=== PATIENT | male | born 1965 | race Caucasian/White ===

== ENCOUNTER 2019-02-02 21:49 | Inpatient (IN) | payer OTHER ==
[~2019-02-02] VITALS: Ht 170.2 cm; Wt 109.1 kg
--- NOTE | ~2019-02-02 | HEMODYNAMI ---
PATIENT:ROM MARY MEDICAL RECORD: [id number] : 69 [id number] ADMISSION DATE: 02/02/19 Generatedon:02/02/201923:18 Patient name: ROM MARY Patient #: [id number] : 1965 Date of study: 02/02/2019 Page: Of Hemodynamic Procedure Report Patient Data Patient Demographics Procedure consent was obtained First Name: ROM Gender: Male Last Name: USMAN : 1965 Patient #: [id number] Age: 53 year(s) Race: Unknown SSN: [id number] Additional ID: [id number] Contact details [address]: [address] [place] [address] State: [place] City: [place] Zip code: [address] Admission Admission Data Admission Date: 02/02/2019 Admission Time: 21:49 Procedure Procedure Types Cath Procedure Diagnostic Procedure LHC LHC w/Coronaries Sedation Charges Moderate Sedation up to 15 minutes PCI Procedure AMI/SVG/CHEMIST STEROIDS PTCA or Stent AMI-BMS/MARIELLE Initial Procedure Description Procedure Date Procedure Date: 02/02/2019 Procedure Start Time: 22:55 Procedure End Time: 23:15 Procedure Staff Name Function Vidal Ramsey MD Performing Physician Zak Becker RT Monitor Mega Schultz RN Nurse Mary Russo RT Scrub Procedure Data Cath Procedure Fluoroscopy Diagnostic fluoroscopy Total fluoroscopy Time: 4.4 time: 4.4 min min Diagnostic fluoroscopy Total fluoroscopy dose: 681 dose: 681 mGy mGy Contrast Material Contrast Material Type Amount (ml) Isovue 300 104 Entry Location Entry Primary Successful Side Size Upsize Upsize Entry Closure Succes sful Closure Location (Fr) 1 (Fr) 2 (Fr) Remarks Device Remarks Femoral Right 6 Fr Exoseal artery Short Estimated blood loss: 10 ml Diagnostic catheters Device Type Used For End Catheter Placement MULTIPACK Pigtail 5 Fr Procedure catheter MULTIPACK JL 4.0 5Fr Procedure catheter MULTIPACK 3DRC 5Fr Procedure catheter Procedure Complications No complications Procedure Medications Medication Administration Route Dosage 0.9% NaCl I.V. 100 ml/hr Oxygen NC 2 l/min Heparin Flush Bag added to field 2 bags (1000units/500ml NS) Lidocaine 2% added to field 20 Versed I.V. 2 mg Fentanyl I.V. 100 mcg Versed I.V. 2 mg Fentanyl I.V. 100 mcg Heparin Bolus I.V. 3000 units Integrilin (Bolus I.V. 10.2 ml 2mg/ml) Integrilin (Bolus wasted 9.8 ml 2mg/ml) Hemodynamics Rest Heart Rate: 79 (bpm) Pressure Samples Time Site Value (mmHg) Purpose Heart Use Rate(bpm) 23:03 AO 121/80(98) Snapshot 75 Snapshots Pre Cath Intra NCS Post Cath Vital Signs Time Heart Resp SPO2 etCO2 NIBP (mmHg) Rhythm Pain Sedation Rate (ipm) (%) (mmHg) Status Level (bpm) 22:49:13 77 18 97 0 145/95(122) NSR 0 (11) 10(A) , No pain 22:53:31 77 11 95 0 142/90(120) NSR 0 (11) 10(A) , No pain 22:57:47 81 19 95 0 134/91(116) NSR 0 (11) 10(A) , No pain 23:02:05 74 12 92 0 124/79(102) NSR 0 (11) 10(A) , No pain 23:06:21 78 19 94 0 126/79(98) NSR 0 (11) 10(A) , No pain 23:10:33 80 9 97 0 137/89(117) NSR 0 (11) 10(A) , No pain 23:14:49 82 17 97 0 146/95(120) NSR 0 (11) 10(A) , No pain Medications Time Medication Route Dose Verified Delivered Reason Notes Effectiveness by by 22:50:15 0.9% NaCl I.V. 100 Mega Mega Per physician ml/hr Antoine Schultz RN RN 22:50:26 Oxygen NC 2 Mega Mega for low 02 sats l/min Antoine Schulzt RN RN 22:50:36 Heparin Flush added 2 Mega Mega used for Bag to bags Antoine Schultz procedure (1000units/500ml [facility] RN RN NS) 22:50:47 Lidocaine 2% added 20ml Mega Mega for local to vial Antoine Schultz anesthetic field RN RN 22:53:52 Versed I.V. 2 mg Mega Mega for sedation Antoine Schultz RN RN 22:54:02 Fentanyl I.V. 100 Mega Mega for sedation mcg Antoine Schultz RN RN 22:55:48 Versed I.V. 2 mg Mega Mega for sedation Antoine Schultz RN RN 22:57:51 Fentanyl I.V. 100 Mega Mega for sedation mcg Antoine Schultz RN RN 23:00:19 Heparin Bolus I.V. 3,000 Mega Mega for units Antoine Schultz anticoagulation RN RN 23:00:39 Integrilin I.V. 10.2 Mega Mega for (Bolus 2mg/ml) ml Antoine Schultz antiplatelet RN RN therapy 23:02:51 Integrilin wasted 9.8 Mega Mega to sharp's (Bolus 2mg/ml) ml Antoine Schultz RN molder Log Time Note 22:29:42 Mega Schultz RN sent for patient. Start room use. 22:36:59 Informed consent obtained and on chart 22:39:38 Procedure Status Emergent Heart Cath (AMI). 22:39:44 Time tracking: Call back (After hours or weekends) 22:39:48 Plan of Care:Hemodynamics will remain stable., Cardiac rhythm will remain stable., Comfort level will be maintained., Respiratory function will remain adequate., Patient/ family verbilizes understanding of procedure., Procedure tolerated without complication., Recovers from procedure without complications.. 22:40:08 Patient arrives emergently. 22:40:12 Patient received from ED to CCL 1 Alert and oriented. Tansferred to table in Supine position. 22:40:14 Warm blankets applied, and mima hugger turned on for patient comfort. 22:40:16 Correct patient and procedure confirmed by team. 22:40:16 ECG and BP/O2 sat monitors applied to patient. 22:48:06 Vital chart was started 22:48:07 Baseline sample Acquired. 22:48:42 Rhythm: sinus rhythm , w/ ST elevation 22:48:44 Full Disclosure recording started 22:48:47 H&P Date Dictated: 02/02/2019 Emergent; H&P N/A. 22:48:57 ACC Patient presents with STEMI CCS Anginal Class 4--Inability to carry out any physical activity w/o angina. Angina may occur at rest. 22:49:03 ACCPatient has been prescribed/administered the following anti-anginal medication within the last 2 weeks: ARB 22:49:05 Pre-procedure instructions explained to patient. 22:49:06 Pre-op teaching completed and patient verbalized understanding. 22:49:07 Family in waiting room. 22:49:09 Patient NPO since Midnight. 22:49:11 Is the patient allergic to Iodine/contrast media? No. 22:49:12 Is patient on blood thinner?No 22:49:16 ACC The patient was administered the following blood thiners within the last 24 hours: None 22:49:17 Patient diabetic? Yes. 22:49:18 If diabetic: On Metformin? Yes 22:49:23 If on Metformin: Last Dose? 02/02/2019 22:49:26 Previous problem with sedation/anesthesia? No ? 22:49:28 Snore? Yes 22:49:29 Sleep apnea? Yes 22:49:31 Deviated septum? No 22:49:32 Opens mouth fully? Yes 22:49:33 Sticks out tongue? Yes 22:49:35 Airway obstruction? No ? 22:49:36 Dentures? No ? 22:50:15 0.9% NaCl 100 ml/hr I.V. was administered by Mega Schultz RN; Per physician; 22:50:26 Oxygen 2 l/min NC was administered by Mega Schultz RN; for low 02 sats; 22:50:36 Heparin Flush Bag (1000units/500ml NS) 2 bags added to field was administered by Mega Schultz RN; used for procedure; 22:50:47 Lidocaine 2% 20ml vial added to field was administered by Mega Shcultz RN; for local anesthetic; 22:51:20 Pre procedure: right dorsailis pedis pulse 1+ Palpable, but thready & weak; easily obliterated 22:51:26 Patient pain scale 0/10 ?. 22:51:33 IV patent on arrival in left forearm with 0.9% NaCl at [facility]. 22:51:34 Lab results pending. 22:51:38 Right groin area was prepped with chlora-prep and draped in sterile fashion 22:51:46 Alarms reviewed by R. N. 22:51:46 Sharps counted by scrub and verified by R.N. 22:53:10 --------ALL STOP TIME OUT------ 22:53:11 Final Timeout: patient, procedure, and site verified with staff and physician. All members of the team are in agreement. 22:53:14 Right groin site verified by team. 22:53:18 Fire Safety Assessment: A--An alcohol-based skin anteseptic being used preoperatively., C--Open oxygen or nitrous oxide is being used., D--An ESU, laser, or fiber-optic light is being used. 22:53:22 Physical assessment completed. ASA score P 3 - A patient with severe systemic disease as per Vidal Ramsey MD. 22:53:25 Sedation plan: IV Moderate Sedation Medication:Versed, Fentanyl 22:53:52 Versed 2 mg I.V. was administered by Mega Schultz RN; for sedation; 22:54:02 Fentanyl 100 mcg I.V. was administered by Mega Schultz RN; for sedation; 22:54:50 Use device set Femoral Dx 22:54:53 Use device set TAUTH PCI 22:54:55 Tegaderm 4 x 4 (1626W) opened to sterile field. 22:54:56 ACIST Manifold (68469) opened to sterile field. 22:54:57 ACIST Hand Control (09197) opened to sterile field. 22:54:58 ACIST Syringe (96891) opened to sterile field. 22:54:59 Bag Decanter (2001S) opened to sterile field. 22:54:59 Medline Cath Pack ([id number]) opened to sterile field. 22:55:01 DIAGNOSTIC Multipack 5Fr catheter set (VA8161) opened to sterile field. 22:55:05 EMERALD Guide Wire (522-006) opened to sterile field. 22:55:05 INFLATOR Merit BasixCompak (BB3396) opened to sterile field. 22:55:07 CHOICE PT Extra Support 182cm wire ([id number]) opened to sterile field. 22:55:11 SHEATH 6FR [place] (CCO923) opened to sterile field. 22:55:16 Procedure started. 22:55:20 Local anesthetic to right femoral artery with Lidocaine 2% by Vidal Ramsey MD.INITIAL ACCESS ONLY 22:55:48 Versed 2 mg I.V. was administered by Mega Schultz RN; for sedation; 22:55:54 A 6 Fr Short sheath was inserted into the Right Femoral artery 22:56:04 Zero performed for pressure channel P1 22:56:19 A MULTIPACK Pigtail 5 Fr catheter was advanced over the wire and used for Procedure. 22:57:06 LV angiography performed. 22:57:08 LV gram done using TAMAYO 22:57:13 EF : 65 % 22:57:16 Injector settings: Ml/sec: 10, Volume: 20, 22:57:18 Catheter removed. 22:57:27 A MULTIPACK JL 4.0 5Fr catheter was advanced over the wire and used for Procedure. 22:57:51 Fentanyl 100 mcg I.V. was administered by Mega Schultz RN; for sedation; 22:57:57 LCA angiography performed. 22:58:16 Catheter removed. 22:58:22 A MULTIPACK 3DRC 5Fr catheter was advanced over the wire and used for Procedure. 22:59:13 RCA angiography performed. 22:59:29 Catheter removed. 22:59:35 GUIDE 6FR XBLAD 4.0 catheter ([id number]) opened to sterile field. 23:00:19 Heparin Bolus 3,000 units I.V. was administered by Mega Schultz RN; for anticoagulation; 23:00:39 Integrilin (Bolus 2mg/ml) 10.2 ml I.V. was administered by Mega Schultz RN; for antiplatelet therapy; 23:00:55 6 Fr XBLAD 4 guide catheter was inserted over the wire 23:01:06 Pre PCI Site: [place] mLAD has 99% stenosis. 23:01:10 CPTXS wire advanced. 23:01:14 ACC Pre-intervention PRINCESS Flow is 3. 23:02:39 Wire advanced across lesion. 23:02:51 Integrilin (Bolus 2mg/ml) 9.8 ml wasted was administered by Mega Schultz RN; to sharp's; 23:04:22 Inflate balloon Inflation number: 1 A EUPHORA 3.0 x 15 Balloon ([id number]) was prepped and advanced across the Mid LAD 99, then inflated to 11 BETITO for 0:10 (min:sec) . 23:05:17 Balloon removed over the wire. 23:06:33 Place stent Inflation Number: 2 A COBRA RX 3.5 X 15 Stent was prepped and advanced across the Mid LAD 99. The stent was deployed at 17 BETITO for 0:10 (min:sec) 0. 23:07:03 Stent catheter was removed intact over wire. 23:07:04 Wire removed. 23:07:05 Guide catheter removed. 23:07:07 ACC Post-intervention PRINCESS Flow is 3. 23:07:18 Post PCI Site: [place] mLAD has 0% stenosis. 23:07:44 EXOSEAL 6Fr (EX600) opened to sterile field. 23:07:55 Sheath removed intact; hemostasis achieved with Exoseal to the Right Femoral artery. 23:07:58 Procedure ended.(Physican Out) 23:11:48 Fluoroscopy time 04.40 minutes. 23:11:53 Fluoroscopy dose: 681 mGy 23:11:53 Flurop Dose total: 681 23:11:58 Dose Area Product 05681 mGy/cm. 23:12:03 Contrast amount:Isovue 300 104ml. 23:12:06 Maximum allowable dose exceeded? No. 23:12:06 Sharps counted by scrub and verified by R.N. 23:12:09 Insertion/operative site no bleeding no hematoma. 23:12:11 Post-op/insertion site Right Femoral artery dressed using a 4 x 4 and Tegaderm. 23:12:13 Post Procedure Pulses reassessed and unchanged 23:12:16 Post-procedure physical assessment completed. ASA score P 2 - A patient with mild systemic disease as per Vidal Ramsey MD. 23:12:19 Post procedure rhythm: sinus rhythm 23:12:24 Estimated blood loss: 10 ml 23:12:25 Post procedure instruction explained to patient.Patient verbalizes understanding. 23:12:26 Patient needs reinforcement of post procedure teaching. 23:14:38 Procedure type changed to Cath procedure, Diagnostic procedure, LHC, LHC w/Coronaries, Sedation Charges, Moderate Sedation up to 15 minutes, PCI procedure, AMI/SVG/CHEMIST STEROIDS PTCA or Stent, AMI-BMS/MARIELLE Initial 23:14:40 Procedure and supply charges have been captured, reviewed, submitted and are correct. 23:14:42 Procedure Complication : No complications 23:14:53 Vital chart was stopped 23:14:54 See physician's report for complete and final results. 23:15:01 Report given to [facility]. 23:15:05 Patient transfered to [facility] with Bed. 23:15:08 Procedure ended. 23:15:08 Full Disclosure recording stopped 23:17:46 End room use (Document Last) Intervention Summary Intervention Notes Time ActionType Lesion and Equipment Action# Pressure Duration Attributes Used 23:04:22 Inflate Mid LAD EUPHORA 1 11 00:10 balloon 3.0 x 15 Balloon ([id number]) 23:06:33 Place stent Mid LAD COBRA RX 2 17 00:10 3.5 X 15 Stent Device Usage Item Name Manufacture Quantity Catalog Number Hospital Part Current Minimal Lot# / Charge Number Stock Stock Serial# Code Tegaderm 4 x 4 3M 1 1626W 400254 161256 487589 5 (1626W) ACIST Manifold Acist 1 98425 866426 650784 400025 5 (47985) Medical Systems Inc ACIST Hand Acist 1 09334 309159 167528 728879 5 Control Medical (20199) Systems Inc ACIST Syringe Acist 1 28266 478207 920278 996876 20 (56173) Medical Systems Inc Bag Decanter Microtek 1 2001S 966800 05163 831750 5 (2002S) Medical Inc. Medline Cath Medline 1 [id number] 986551 41382 193073 5 Pack ([id number]) DIAGNOSTIC Cardinal 1 ES7940 613945 30910 121533 30 Multipack 5Fr Health catheter set (WH1533) EMERALD Guide Cardinal 1 502-455 047169 598916 895298 5 Wire (502-455) Health INFLATOR Merit Merit 1 OQ1843 038835 798822 390335 15 CAYMUS MEDICAL (XC3289) CHOICE PT [place] 1 [id number] 072570 449658 427286 5 Extra Support Scientific 182cm wire ([id number]) SHEATH 6FR Terumo 1 VLJ068 834108 747149 767979 40 [place] (GMQ733) MULTIPACK Cardinal 1 536423 5 Pigtail 5 Fr Health catheter MULTIPACK JL Cardinal 1 237342 5 4.0 5Fr Health catheter MULTIPACK 3DRC Cardinal 1 673371 5 5Fr catheter Health GUIDE 6FR Cardinal 1 [id number] 895428 673554 575847 3 XBLAD 4.0 Health catheter ([id number]) EUPHORA 3.0 x Medtronic 1 [id number] 844978 900103 156006 5 [id number] 15 Balloon ([id number]) COBRA RX 3.5 X Celonova 1 719092 [id number] 1957509 2 [id number] 15 stent Biosciences () EXOSEAL 6Fr Cardinal 1 EX600 839391 488139 715443 10 (EX600) Health Signature Audit [place] Stage Time Signature Unsigned Intra-Procedure 02/02/2019 Zak Becker 11:17:59 PM RT(R) Signatures Performing Physician : Signature : Vidal Ramsey MD Date : Time : Monitor : Zak Becker RT Signature : Date : Time : Nurse : Mega Schultz Signature : RN Date : Time : [facility] [address] [facility] [place] [address]
[2019-02-02] MEDS ORDERED: ADALAT CC90 MG PO (22:00)
[2019-02-02] MEDS ORDERED: GLUCOPHAGE1000 MG PO (22:00)
[2019-02-02] MEDS ORDERED: BAYER CHEWABLE81 MG PO (22:00)
[2019-02-02] MEDS ORDERED: COZAAR100 MG PO (22:00)
[2019-02-02] MEDS ORDERED: SYNTHROID300 MCG (22:01)
[2019-02-02] MEDS ORDERED: PREVALITE POWD231 GM PO (22:03)
[2019-02-02 22:15] VITALS: BP 150/96
[2019-02-02 22:24] LABS: APTT 27.6 SECONDS (22.8-39.4); BASOPHILS 0.5 % (0-2); HEMATOCRIT 48.4 % (42.0-54.0); HEMOGLOBIN 16.8 g/dL (13.5-17.5); IMMATURE GRANULOCYTES 0.4 % (0-5); INR 1.02 (0.85-1.17); LYMPHOCYTES 32.7 % (15-50); MCH 30.6 pg (26.0-34.0); MCHC 34.7 g/dL (31.0-37.0); MCV 88.2 fL (80.0-100.0); MONOCYTES 8.3 % (2-11); NEUTROPHILS 55.1 % (40-80); PLATELET COUNT 228 10x3/uL (130-400); PROTIME 12.9 SECONDS (11.6-15.0); RBC 5.49 10x6/uL (4.20-6.10); RDW 14.6 % (11.5-14.5); WBC 13.5 10x3/uL (4.8-10.8)
[2019-02-02 22:26] VITALS: BP 122/78
[2019-02-02 22:32] VITALS: BP 122/80
[2019-02-02 22:56] LABS: ALBUMIN 3.8 g/dL (3.4-5.0); ALKALINE PHOSPHATASE 60 U/L (46-116); ALT (SGPT) 34 U/L (10-68); BILIRUBIN - TOTAL 0.54 mg/dL (0.2-1.3); CALC OSMOLALITY 282 mosm/kg (275-300); CALCIUM 9.1 mg/dL (8.5-10.1); CARBON DIOXIDE 23.3 mmol/L (21.0-32.0); CHLORIDE - SERUM 105 mmol/L (98-107); CKMB 3.9 U/L (0.0-3.6); CREATINE KINASE 366 UL (21-232); CREATININE - SERUM 1.1 mg/dL (0.6-1.3); GLUCOSE 141 mg/dL (74-106); POTASSIUM - SERUM 5.4 mmol/L (3.5-5.1); PROTEIN - SERUM 7.9 g/dL (6.4-8.2); SODIUM 141 mmol/L (136-145); UREA NITROGEN 12 mg/dL (7-18); eGFR NON AFRICAN AMERICAN 75 mL/min (90-120)
[2019-02-02 22:57] LABS: TROPONIN-I 1.058 ng/mL (0.000-0.060)
--- NOTE | 2019-02-03 00:05 | NUR ---
PT RECEIVED TO ROOM 2110 FROM CUSTODIAL SERVICES MANAGER. DRESSING IN PLACE TO RIGHT GROIN. PT RECIEVED 1 STENT TO THE LAD PER DR RIVERA/EMERGENT CATH DONE STRAIGHT FROM THE ER. PT ALERT/ORIENTED. AND RESTING WITH NO DISTRESS. ADMISSION ASSESSMENT AND HISTORY COMPLETED. PT NPO AFTER BREAKFAST IN AM.
[2019-02-03] MEDS ORDERED: VITAMIN E600 UNIT BILIARY (00:20)
--- NOTE | 2019-02-03 00:25 | NUR ---
RECEIVED PT FROM DOPING SUPERVISOR, A&O, IV-L.HAND-NS @ 100, DRESSING TO [facility], FAMILY AT BEDSIDE, BED IS LOW, SRX2, CALL LIGHT IN REACH, TELEMTRY IS ON, WILL CONTINUE PLAN OF CARE
[2019-02-03 02:13] VITALS: BP 132/84; BP 147/81; Ht 170.2 cm; Wt 109.1 kg
[2019-02-03 04:00] VITALS: BP 136/91
[2019-02-03 09:42] VITALS: BP 158/93
--- NOTE | 2019-02-03 09:48 | OP ---
PATIENT NAME: ROM MARY MEDICAL RECORD: [id number] :69 LOCATION:D.M2 D.2111 ADMISSION DATE:02/02/19 SURGEON: MURPHY RIVERA MD DATE OF OPERATION: 02/02/2019 PROCEDURES: 1. PTCA and stent to the LAD. 2. Left heart catheterization. 3. Selective coronary angiography. 4. Left ventriculogram. INDICATIONS: Acute anterior myocardial infarction. DESCRIPTION OF PROCEDURE: After informed consent was obtained and after detailed explanation of risks, benefits as well as alternative therapies, the patient elected to proceed with angiogram and angioplasty. The right femoral area was prepped and draped in normal sterile fashion. Right femoral artery was cannulated via modified Seldinger technique with placement of 6-[place] sheath. All catheters exchanged through this sheath. FINDINGS: Left ventriculogram was performed in standard 30-degree TAMAYO view, reveals good cardiac wall motion, ejection fraction 65%. SELECTIVE CORONARY ANGIOGRAPHY: 1. Left main is with no significant angiographic disease. 2. Left anterior descending has the 99% stenosis with PRINCESS 2 flow. 3. Left circumflex has moderate irregularities but no flow-limiting stenosis. 4. Right coronary has moderate irregularities but no flow-limiting stenosis. PTCA STENT OF THE LAD: The stent used was a 3.5 x 15 mm Cobra taken to 17 atmospheres. Result was 0% residual stenosis. PRINCESS-3 flow. OVERALL IMPRESSION: Successful percutaneous transluminal angioplasty and stent of the left anterior descending going from 99% initial stenosis with PRINCESS 2 flow to 0% residual stenosis with PRINCESS-3 flow. TRANSINT:[id number] Voice Confirmation ID: [id number] DOCUMENT ID: [id number] MURPHY RIVERA MD at 0948 CC: [id number] DICTATION DATE: 02/02/192312 CERTIFIED HYPERBARIC TECHNOLOGIST: 02/02/19 2326 [place] [address]
[2019-02-03] MEDS ORDERED: PLAVIX75 MG PO (11:22)
[2019-02-03] MEDS ORDERED: PRAVACHOL20 MG PO (11:22)
[2019-02-03] MEDS ORDERED: METOPROLOL TART25 MG PO (11:23)
[2019-02-03] MEDS ORDERED: BAYER CHEWABLE81 MG PO (11:31)
--- NOTE | 2019-02-03 11:49 | MORECARE ---
CASE MANAGEMENT DISCHARGE SUMMARY PATIENT: ROM MARY UNIT: [id number] ADM DATE: 02/02/19 AGE: 53 : 69 SEX: M ROOM/BED: D.2111 AUTHOR: BLADIMIR BAINS PHYSICIAN: REFERRING PHYSICIAN: MURPHY RIVERA MD DATE OF SERVICE: 02/03/19 Discharge Plan Patient Name: ROM MARY [facility] [facility] 1965 Planned Disposition: Home Anticipated Discharge Date: 02/03/19 Discharge Date: Expected LOS: 1 Initial Reviewer: [email or web address] Initial Review Date: 02/03/2019 Generated: 02/03/19 12:48 pm DCPIA - Discharge Planning Initial Assessment Updated by [email or web address]: Gustavo Martinez on 02/03/19 11:45 am * Is the patient Alert and Oriented? Yes * How many steps to enter\exit or inside your home? * PCP DR. HEVER KRAFT, [facility] * Pharmacy [facility]IL ORDER OR [facility] * Preadmission Environment Home with Family * ADLs Independent * Equipment CPAP * Other Equipment [facility] - MEDICAL EQUIPMENT PROVIDER PREFERENCE * List name and contact numbers for known caregivers / representatives who currently or will assist patient after discharge: GLADYS MARY, SPOUSE, * Verbal permission to speak to the caregivers and representatives has been obtained from the patient. Yes * Community resources currently utilized None * Please name any agencies selected above. NONE * Additional services required to return to the preadmission environment? No * Can the patient safely return to the preadmission environment? Yes * Has this patient been hospitalized within the prior 30 days at any hospital? No Patient Name: ROM MARY Page 33895 at 1149 All edits/amendments must be made on the electronic document DICTATION DATE: 02/03/19 1148 CAFETERIA TABLE ATTENDANT: JEAN 02/03/19 1148 RPT#: [id number] DC DATE: STATUS: ADM IN [facility] [address] [place] [address] END OF REPORT
--- NOTE | 2019-02-03 11:55 | MORECARE ---
CASE MANAGEMENT DISCHARGE SUMMARY PATIENT: ROM MARY UNIT: [id number] ADM DATE: 02/02/19 AGE: 53 : 69 SEX: M ROOM/BED: D.2111 AUTHOR: NARA,DOC PHYSICIAN: REFERRING PHYSICIAN: MURPHY RIVERA MD DATE OF SERVICE: 02/03/19 Discharge Plan Patient Name: ROM MARY Facility: [facility]:[place] : 1965 Planned Disposition: Home Anticipated Discharge Date: 02/03/19 Discharge Date: Expected LOS: 1 Initial Reviewer: [email or web address] Initial Review Date: 02/03/2019 Generated: 02/03/19 12:55 pm Comments DCP- Discharge Planning Updated by [email or web address]: Gustavo Martinez on 02/03/19 10:[address] Patient Name: ROM MARY Admission Status: ER Accout number: [id number] Admission Date: 02-02-2019 : 1965 Admission Diagnosis: Attending: AMBREEN RIVERA Current LOS: 1 Anticipated DC Date: 02-03-2019 Planned Disposition: Home Primary Insurance: [employer] Discharge Planning Comments: CM MET WITH PT AND SPOUSE IN ROOM TO DISCUSS DISCHARGE PLANNING AND NEEDS. ROM MARY provided verbal consent to discuss current and ongoing needs with/in the presence of: SPOUSE GLADYS. PT REPORTS LIVING AT HOME INDEPENDENTLY WITH HIS . PT HAS CPAP FROM [facility]. PT HAS NO OUTSIDE SERVICES ASSISTING IN THE HOME. CM DISCUSSED AVAILABILITY OF HOME HEALTH, REHAB SERVICES AND MEDICAL EQUIPMENT. PT DENIES DISCHARGE NEEDS, REPORTS HIS WILL PICK HIM UP FOR DISCHARGE HOME. PT IS NOT SURE IF THE [facility] WAS CALLED WHEN HE GOT HERE LAST NIGHT, BUT WOULD LIKE THEM NOTIFIED THEY ARE HIS PRIMARY CARE PROVIDERS AND MEDICAL INSURANCE PROVIDER. CM CALLED [employer] [facility], , SPOKE TO VALE WHO TOOK PT'S INFORMATION FOR ADMIT AND DISCHARGE. Seat Installer: Gustavo Martinez DCPIA - Discharge Planning Initial Assessment Updated by [email or web address]: Gustavo Martinez on 02/03/19 11:45 am * Is the patient Alert and Oriented? Yes * How many steps to enter\exit or inside your home? * PCP DR[facility] HEVER KRAFT, [facility] * Pharmacy [facility] [facility] ORDER OR [facility] * Preadmission Environment Home with Family * ADLs Independent * Equipment CPAP * Other Equipment [employer] - MEDICAL EQUIPMENT PROVIDER PREFERENCE * List name and contact numbers for known caregivers / representatives who currently or will assist patient after discharge: GLADYS MARY, SPOUSE, * Verbal permission to speak to the caregivers and representatives has been obtained from the patient. Yes * Community resources currently utilized None * Please name any agencies selected above. NONE * Additional services required to return to the preadmission environment? No * Can the patient safely return to the preadmission environment? Yes * Has this patient been hospitalized within the prior 30 days at any hospital? No Last DP export: 02/03/19 10:49 am Patient Name: ROM MARY Page 26461 at 1155 All edits/amendments must be made on the electronic document DICTATION DATE: 02/03/19 1155 FIELD IRONWORKER: JEAN 02/03/19 1155 RPT#: [id number] DC DATE: STATUS: ADM IN [facility] [address] [place] [address] END OF REPORT
--- NOTE | 2019-02-03 12:16 | NUR ---
IV THERAPY DC'ED FROM LEFT HAND. TIP INTACT. PT AND VERBALIZED UNDERSTANDING OF DISCHARGE INSTRUCTIONS. REFUSES WHEELCHAIR OUT. NO QUESTIONS ASKED.
--- NOTE | 2019-02-04 09:53 | DS ---
PATIENT:ROM COTTER :69 MEDICAL RECORD: [id number] DISCHARGE SUMMARY ADMISSION DATE: 02/02/19 DISCHARGE DATE: 02/03/19 DIAGNOSES: 1. Acute anterior myocardial infarction. 2. Percutaneous transluminal coronary angioplasty stent left anterior descending. 3. Coronary artery disease. 4. Hypertension. 5. Hyperlipidemia. HOSPITAL COURSE: Mr. Cotter presents with acute anterior myocardial infarction, found to have significant disease of the LAD, underwent successful PTCA stent of the LAD, was discharged home with the addition of aspirin, Plavix, Pravachol, and Lopressor to his medical regimen. Follow up with [facility]. TRANSINT:[id number] Voice Confirmation ID: [id number] DOCUMENT ID: [id number] MURPHY RIVERA MD at 0953 CC: [id number] DICTATION DATE: 02/03/19 0948 LANDSCAPE GARDENER: 02/03/19 1001 DIS IN 02/03/19 [facility] [address] [place] [address]
--- NOTE | 2019-02-04 09:53 | HP ---
PATIENT: ROM COTTER MEDICAL RECORD: [id number] ACCOUNT: [id number] LOCATION:[address] : 69 ADMISSION DATE: 02/02/19 PCP: DOCTOR CINTHYA HISTORY AND PHYSICAL EXAMINATION DATE OF SERVICE: 02/02/2019 DIAGNOSES: 1. Acute anterior myocardial infarction. 2. Coronary artery disease. 3. Hypertension. 4. Hyperlipidemia. 5. Rms-bbyjuhw-ramxkqaba diabetes. HISTORY OF PRESENT ILLNESS: Mr. Cotter has no history of ischemic heart disease, began having chest pain acutely approximately 1 hour prior to admission. His EKG is compatible with an acute anterior myocardial infarction. He has risk factors with hypertension, hyperlipidemia, non-insulin dependent diabetes. PHYSICAL EXAMINATION: GENERAL APPEARANCE: Well-nourished, well-developed, appears stated age. Level of distress, comfortable. PSYCHIATRIC: Mental status, alert, normal affect. Orientation, oriented to time, place and person. EYES: Lids and conjunctiva, noninjected. No discharge, no pallor. ENT: Lips, teeth, gums, normal dentition. Oropharynx, no cyanosis, no pallor. NECK: Carotid arteries, bilateral normal upstroke, no bruits, no thrills. JUGULAR VEINS: No jugular venous pressure or distention. CERVICAL LYMPH NODES: Nontender, nonenlarged. THYROID: Not enlarged. Nontender. No nodules. LUNGS: Respiratory effort, unlabored. CHEST: Normal curvature. No thoracic deformity. No chest wall tenderness. Percussion, resonant. Auscultation, clear. No wheezes, no rales, no rhonchi. CARDIOVASCULAR: Precordial exam, nondisplaced. No heaves or pericardial thrills. Rate and rhythm, regular. Heart sounds, normal S1, normal S2. No S3, no gallop, no rub. Systolic murmur, not heard. Diastolic murmur, not heard. EXTREMITIES: No cyanosis, no edema. Peripheral pulses, full and equal in all extremities, except as noted. No bruits appreciated. ABDOMEN: Soft, nondistended. Normal aorta. No bruit. Nontender. No masses. Liver, nontender, no hepatomegaly. Spleen, nontender, no splenomegaly. MUSCULOSKELETAL: No joint tenderness. No joint swelling. No erythema. NEUROLOGICAL: Normal gait, normal strength, normal tone. SKIN: Warm and dry. OVERALL IMPRESSION: Acute anterior myocardial infarction. We will proceed with emergent cardiac catheterization. Further care depends upon findings of the catheterization. TRANSINT:[id number] Voice Confirmation ID: [id number] DOCUMENT ID: [id number] HISTORY AND PHYSICAL [id number] ROM COTTER JEFFREY MD at 0953 CC: [id number] DICTATION DATE: 02/02/192311 DATA SECURITY COORDINATOR: 02/02/192326 DIS IN 02/03/[address] [id number]
== END 2019-02-03 12:39 | disposition home or self-care (01) | DRG 249 ==
LOC: D.ER 21:49 → D.M2 23:17 → D.ER 23:18 → D.M2 23:19
PROVIDERS: Emergency Medicine; ADMIT Internal Medicine Interventional Cardiology; ATTEND Internal Medicine Interventional Cardiology
PROC: B2111ZZ Fluoroscopy of Multiple Coronary Arteries using Low Osmolar Contrast (ICD-10-PCS; 2019-02-02)
PROC: B2151ZZ Fluoroscopy of Left Heart using Low Osmolar Contrast (ICD-10-PCS; 2019-02-02)
PROC: 02703DZ Dilation of Coronary Artery, One Artery with Intraluminal Device, Percutaneous Approach (ICD-10-PCS; principal; 2019-02-02 22:29)
PROC: 4A023N7 Measurement of Cardiac Sampling and Pressure, Left Heart, Percutaneous Approach (ICD-10-PCS; 2019-02-02 22:29)
DX: I21.09 ST elevation (STEMI) myocardial infarction involving other coronary artery of anterior wall (principal); I10 Essential (primary) hypertension; E78.5 Hyperlipidemia, unspecified; E11.9 Type 2 diabetes mellitus without complications

== ENCOUNTER 2019-07-02 00:47 | Emergency (ER) | payer OTHER ==
[~2019-07-02] VITALS: Ht 170.2 cm; Wt 118.2 kg
[~2019-07-02 00:47] MED LIST: ADALAT CC90 MG PO; BAYER CHEWABLE81 MG PO; COZAAR100 MG PO; GLUCOPHAGE1000 MG PO; METOPROLOL TART25 MG PO; PLAVIX75 MG PO; PRAVACHOL20 MG PO; PREVALITE POWD231 GM PO; SYNTHROID300 MCG; VITAMIN E600 UNIT BILIARY
[2019-07-02 00:59] VITALS: Ht 170.2 cm; Wt 118.2 kg
[2019-07-02] MEDS ORDERED: BAYER ASPIRIN325 MG PO (01:00)
[2019-07-02] MEDS ORDERED: SYNTHROID300 MCG PO (01:02)
[2019-07-02 02:10] LABS: BASOPHILS 0.4 % (0-2); EOSINOPHILS 3.4 % (0-7); HEMATOCRIT 45.4 % (42.0-54.0); HEMOGLOBIN 14.4 g/dL (13.5-17.5); IMMATURE GRANULOCYTES 0.5 % (0-5); LYMPHOCYTES 28.5 % (15-50); MCH 27.1 pg (26.0-34.0); MCHC 31.7 g/dL (31.0-37.0); MCV 85.5 fL (80.0-100.0); MEAN PLATELET VOLUME 10.7 fL (7.4-10.4); MONOCYTES 7.9 % (2-11); NEUTROPHILS 59.3 % (40-80); PLATELET COUNT 217 10x3/uL (130-400); RBC 5.31 10x6/uL (4.20-6.10); RDW 14.6 % (11.5-14.5); WBC 7.8 10x3/uL (4.8-10.8)
[2019-07-02 02:12] LABS: ANION GAP 13.6 mmol/L (8-16); CALCIUM 8.8 mg/dL (8.5-10.1); CARBON DIOXIDE 26.2 mmol/L (21.0-32.0); CREATININE - SERUM 1.5 mg/dL (0.6-1.3); POTASSIUM - SERUM 3.8 mmol/L (3.5-5.1)
[2019-07-02 02:14] LABS: APTT 27.8 SECONDS (22.8-39.4); INR 0.95 (0.85-1.17); PROTIME 12.1 SECONDS (11.6-15.0)
[2019-07-02 02:18] LABS: ALBUMIN 3.3 g/dL (3.4-5.0); BILIRUBIN - TOTAL 0.22 mg/dL (0.2-1.3); PROTEIN - SERUM 6.9 g/dL (6.4-8.2)
[2019-07-02 03:03] VITALS: BP 168/88
== END 2019-07-02 03:04 | disposition home or self-care (01) ==
LOC: D.ER 00:47
PROVIDERS: Family Medicine
DX: H21.562 Pupillary abnormality, left eye (principal); E11.9 Type 2 diabetes mellitus without complications; Z79.84 Long term (current) use of oral hypoglycemic drugs; E78.5 Hyperlipidemia, unspecified; I25.2 Old myocardial infarction; Z95.5 Presence of coronary angioplasty implant and graft; I10 Essential (primary) hypertension